=== PATIENT | male | born 1995 | race African-American/Black ===

== ENCOUNTER 2020-12-14 20:04 | Emergency (ER) | payer OTHER ==
[2020-12-14 20:18] VITALS: BP 102/56; PULSE 74; TEMP 98.6; BMI 25.7
== END 2020-12-14 20:50 | disposition home or self-care (01) ==
LOC: JERFT 20:04
DX: S61.511A Laceration without foreign body of right wrist, initial encounter (principal); Z48.02 Encounter for removal of sutures
CPT/HCPCS: 99281-25